=== PATIENT | female | born 1965 | race African-American/Black ===

== ENCOUNTER → 2016-10-19 | Outpatient (CLI) | payer SELFPAY ==
[2016-10-19 10:37] LABS: HEMATOCRIT 38.6 % (36.0-47.0); HEMOGLOBIN 13.1 g/dL (12.0-15.5); HGB HCT DIFFERENCE 0.7; MEAN CORPUSCULAR HEMOGLOBIN 30.6 pg (27.0-33.4); MEAN CORPUSCULAR HGB CONC 33.9 g/dL (32.0-36.0); MEAN CORPUSCULAR VOLUME 90 fl (80-97); RED BLOOD COUNT 4.28 10^6/uL (3.72-5.28); RED CELL DISTRIBUTION WIDTH 15.3 % (11.5-14.0); WHITE BLOOD COUNT 4.2 10^3/uL (4.0-10.5)
[2016-10-19 10:55] LABS: ALANINE AMINOTRANSFERASE 31 U/L (9-52); ALKALINE PHOSPHATASE 57 U/L (38-126); ANION GAP 10 (5-19); ASPARTATE AMINO TRANSFERASE 25 U/L (14-36); BILIRUBIN,TOTAL 0.6 mg/dL (0.2-1.3); BLOOD UREA NITROGEN 12 mg/dL (7-20); CALCIUM 10.5 mg/dL (8.4-10.2); CARBON DIOXIDE 29 mmol/L (22-30); CHLORIDE 100 mmol/L (98-107); CREATININE RESULT 0.57 mg/dL (0.52-1.25); GLUCOSE 105 mg/dL (75-110); POTASSIUM 4.6 mmol/L (3.6-5.0); SODIUM 139.1 mmol/L (137-145); TOTAL PROTEIN 7.6 g/dL (6.3-8.2)
== END ==
LOC: LAB 10:23
PROVIDERS: ATTEND Physician Assistant Medical
DX: I47.1 Supraventricular tachycardia (principal)
CPT/HCPCS: 36415; 80053; 84443; 85027

== ENCOUNTER → 2016-11-20 | Outpatient (CLI) | payer OTHER | LOC: OD 10:40 | PROVIDERS: ATTEND Physician Assistant | DX: R94.6 Abnormal results of thyroid function studies (principal) | CPT/HCPCS: 36415; 84436; 84443; 86376 ==

== ENCOUNTER → 2016-11-30 | Outpatient (CLI) | payer OTHER | LOC: WI 10:31 | PROVIDERS: ATTEND Physician Assistant | DX: R94.6 Abnormal results of thyroid function studies (principal) | CPT/HCPCS: 76536 ==

== ENCOUNTER → 2016-12-14 | Outpatient (CLI) | payer OTHER | LOC: WI 12:36 | PROVIDERS: ATTEND Physician Assistant | DX: Z12.31 Encounter for screening mammogram for malignant neoplasm of breast (principal) | CPT/HCPCS: 77067; G0202 ==

== ENCOUNTER → 2016-12-21 | Outpatient (CLI) | payer OTHER | LOC: RAD 08:52 | PROVIDERS: ATTEND Physician Assistant | DX: R94.6 Abnormal results of thyroid function studies (principal); E04.1 Nontoxic single thyroid nodule | CPT/HCPCS: 78014; A9516 ==

== ENCOUNTER → 2016-12-27 | Outpatient (CLI) | payer OTHER ==
--- NOTE | 2016-12-28 09:40 | XCELERA REPORT ---
[address] [address] Transthoracic Echocardiogram Report Name: BRYANNA MENJIVAR Age: 51 yrs Gender: Female : 1965 Patient Status: Outpatient Patient Location: Study Date: 12/27/2016 10:56 AM Height: 62 in Weight: 106 lb BSA: 1.5 m2 Procedure: A complete two-dimensional transthoracic echocardiogram was performed (2D, M-mode, spectral and color flow Doppler). The study was technically adequate with some images being suboptimal in quality. Reason For Study: CHEST PAIN Ordering Physician: BERTA ALBERT Performed By: Jael Gonzales Interpretation Summary The left ventricular ejection fraction is normal. There is normal left ventricular wall thickness. Doppler measurements suggest normal left ventricular diastolic function The left ventricle is grossly normal size. Wall motion cannot be accurately commented on, but no definite regional wall motion abnormalities noted. Borderline right ventricular enlargement. The right ventricular systolic function is normal. The right atrium is mildly dilated. The left atrial size is normal. There is a trace amount of mitral regurgitation There is no mitral valve stenosis. There is no aortic valve stenosis No aortic regurgitation is present. There is a moderate amount of tricuspid regurgitation There is mild to moderate pulmonary hypertension by echo Right ventricular systolic pressure is estimated to be elevated at 40- 50mmHg. The aortic root is not well visualized. The inferior vena cava appeared normal and decreased > 50% with respiration (RAP 5-10 mmHg) There is no pericardial effusion. MMode/2D Measurements \T\ Calculations RVDd: 2.0 cm LVIDd: 4.6 cm FS: 42.7 % Ao root diam: 2.9 cm IVSd: 0.83 cm LVIDs: 2.6 cm EDV(Teich): 95.1 ml LVPWd: 0.93 cmESV(Teich): 24.8 ml Ao root area: 6.7 cm2 EF(Teich): 73.9 % LA dimension: 2.6 cm LVOT diam: 2.3 cm LVOT area: 4.2 cm2 Doppler Measurements \T\ Calculations MV E max jing: MV P1/2t max jing: Ao V2 max: LV V1 max P.0 cm/sec 62.0 cm/sec 103.2 cm/sec 2.4 mmHg MV A max jing: MV P1/2t: 58.2 msec Ao max PG: LV V1 max: 44.7 cm/sec MVA(P1/2t): 3.8 cm2 4.3 mmHg 77.1 cm/sec MV E/A: 1.4 MV dec slope: FIDE(V,D): 3.1 cm2 312.0 cm/sec2 PA V2 max: TR max jing: 60.2 cm/sec 314.9 cm/sec PA max PG: TR max P.7 mmHg 1.4 mmHg Left Ventricle The left ventricle is grossly normal size. There is normal left ventricular wall thickness. The left ventricular ejection fraction is normal. Doppler measurements suggest normal left ventricular diastolic function. Wall motion cannot be accurately commented on, but no definite regional wall motion abnormalities noted. Right Ventricle Borderline right ventricular enlargement. There is normal right ventricular wall thickness. The right ventricular systolic function is normal. Atria The right atrium is mildly dilated. The left atrial size is normal. Interarterial septum not well visualized and not well dopplered. Cannot comment on ASD/PFO presence. Mitral Valve The mitral valve is grossly normal. There is no mitral valve stenosis. There is a trace amount of mitral regurgitation. Aortic Valve The aortic valve is grossly normal. There is no aortic valve stenosis. No aortic regurgitation is present. Tricuspid Valve The tricuspid valve is not well visualized, but is grossly normal. There is no tricuspid stenosis. There is a moderate amount of tricuspid regurgitation. There is mild to moderate pulmonary hypertension by echo. Right ventricular systolic pressure is estimated to be elevated at 40- 50mmHg. Great Vessels The aortic root is not well visualized. The inferior vena cava appeared normal and decreased > 50% with respiration (RAP 5-10 mmHg). Effusions There is no pericardial effusion. : BERTA ALBERT > Berta Albert
== END ==
LOC: SP 10:38
PROVIDERS: ATTEND Internal Medicine Cardiovascular Disease
DX: R00.2 Palpitations (principal); R42 Dizziness and giddiness; R55 Syncope and collapse; R07.9 Chest pain, unspecified
CPT/HCPCS: 93306

== ENCOUNTER 2017-05-21 16:27 | Emergency (ER) | payer OTHER ==
[2017-05-21 17:00] VITALS: BP 151/92
[2017-05-21] MEDS ORDERED: ASPIRIN 81 MG TABLET, CHEWABLE PO ONE (17:16)
--- NOTE | 2017-05-21 17:21 | ER Document Report ---
ED Medical Screen (RME) - General Chief Complaint: Chest Pain Stated Complaint: CHEST PAIN, HEADACHE Time Seen by Provider: 05/21/17 17:16 Mode of Arrival: Ambulatory Information source: Patient Notes: 52-year-old female who presents with complaints of midsternal left-sided chest pressure associated with headache. Patient states chest pain started today. Patient notes she has had similar episodes in the past had a stress test by Dr. Yip recently I have greeted and performed a rapid initial assessment of this patient. A comprehensive ED assessment and evaluation of the patient, analysis of test results and completion of the medical decision making process will be conducted by additional ED providers. PHYSICAL EXAMINATION: GENERAL: Well-appearing, well-nourished and in no acute distress. HEAD: Atraumatic, normocephalic. EYES: Pupils equal round extraocular movements intact, conjunctiva are normal. ENT: Nares patent NECK: Normal range of motion LUNGS: No respiratory distress Musculoskeletal: Normal range of motion NEUROLOGICAL: Normal speech, normal gait. PSYCH: Normal mood, normal affect. SKIN: Warm, Dry, normal turgor, no rashes or lesions noted. TRAVEL OUTSIDE OF THE [place] IN LAST 30 DAYS: No - Related Data Allergies/Adverse Reactions: iodine Allergy (Verified 05/21/17 17:07) Shellfish * [Shellfish] Allergy (Verified 05/21/17 17:07) Home Medications: Current Home Medications Metoprolol Tartrate 25 mg PO DAILY 05/21/17 [History] Past Medical History - Social History Chew tobacco use (# tins/day): No Frequency of alcohol use: Occasional Drug Abuse: None Renal/ Medical History: Denies: Hx Peritoneal Dialysis Past Surgical History: Reports: Hx Section - x3, Hx Hysterectomy - Immunizations Hx Diphtheria, Pertussis, Tetanus Vaccination: Yes Physical Exam - Vital signs Vitals: Temp Pulse Resp BP Pulse Ox 98.4 F 82 20 151/92 H 96 05/21/17 16:59 05/21/17 16:59 05/21/17 16:59 05/21/17 16:59 05/21/17 16:59 Course - Vital Signs Vital signs: Temp Pulse Resp BP Pulse Ox 98.4 F 82 20 151/92 H 96 05/21/17 16:59 05/21/17 16:59 05/21/17 16:59 05/21/17 16:59 05/21/17 16:59
--- NOTE | 2017-05-21 17:50 | EKG REPORT ---
SEVERITY:- NORMAL ECG - SINUS RHYTHM : Confirmed by: Berta Armstrong 21-May-2017 17:49:50
[2017-05-21 17:58] LABS: ABSOLUTE LYMPHOCYTES (AUTO) 0.7 10^3/uL (0.5-4.7); ABSOLUTE MONOCYTES (AUTO) 0.4 10^3/uL (0.1-1.4); ABSOLUTE NEUT (AUTO) 2.7 10^3/uL (1.7-8.2); BASOPHILS % (AUTO) 0.6 % (0-2); HEMATOCRIT 36.3 % (36.0-47.0); HEMOGLOBIN 12.3 g/dL (12.0-15.5); HGB HCT DIFFERENCE 0.6; LYMPHOCYTES % (AUTO) 18.1 % (13-45); MEAN CORPUSCULAR HEMOGLOBIN 30.8 pg (27.0-33.4); MEAN CORPUSCULAR HGB CONC 33.9 g/dL (32.0-36.0); MEAN CORPUSCULAR VOLUME 91 fl (80-97); MONOCYTES % (AUTO) 9.5 % (3-13); RED BLOOD COUNT 3.99 10^6/uL (3.72-5.28); RED CELL DISTRIBUTION WIDTH 14.8 % (11.5-14.0); SEGMENTED NEUTROPHILS % (AUTO) 71.8 % (42-78); WHITE BLOOD COUNT 3.8 10^3/uL (4.0-10.5)
[2017-05-21 18:08] LABS: ALANINE AMINOTRANSFERASE 39 U/L (9-52); ALKALINE PHOSPHATASE 73 U/L (38-126); ANION GAP 15 (5-19); ASPARTATE AMINO TRANSFERASE 63 U/L (14-36); BILIRUBIN,DIRECT 0.4 mg/dL (0.0-0.4); BILIRUBIN,TOTAL 0.8 mg/dL (0.2-1.3); BLOOD UREA NITROGEN 10 mg/dL (7-20); CALCIUM 9.5 mg/dL (8.4-10.2); CARBON DIOXIDE 27 mmol/L (22-30); CHLORIDE 95 mmol/L (98-107); CREATINE KINASE 82 U/L (30-135); CREATININE RESULT 0.46 mg/dL (0.52-1.25); GLUCOSE 74 mg/dL (75-110); POTASSIUM 4.3 mmol/L (3.6-5.0); SODIUM 136.8 mmol/L (137-145)
--- NOTE | 2017-05-21 18:19 | RADIOLOGY REPORT (SQ) ---
EXAM DESCRIPTION: CHEST SINGLE VIEW COMPLETED DATE/TIME: 05/21/2017 5:58 pm REASON FOR STUDY: chest pain COMPARISON: None. EXAM PARAMETERS: NUMBER OF VIEWS: One view. TECHNIQUE: Single frontal radiographic view of the chest acquired. RADIATION DOSE: NA LIMITATIONS: None. FINDINGS: LUNGS AND PLEURA: No opacities, masses or pneumothorax. No pleural effusion. MEDIASTINUM AND HILAR STRUCTURES: No masses. Contour normal. HEART AND VASCULAR STRUCTURES: Heart normal in size. Normal vasculature. BONES: No acute findings. HARDWARE: None in the chest. OTHER: No other significant finding. IMPRESSION: NO ACUTE RADIOGRAPHIC FINDING IN THE CHEST. TECHNICAL DOCUMENTATION: JOB ID: [id number]
[2017-05-21 18:20] LABS: CREATINE KINASE MB 0.72 ng/mL (<4.55)
[2017-05-21 18:21] LABS: TROPONIN I < 0.012 ng/mL
[2017-05-21] MEDS ORDERED: KETOROLAC TROMETHAMINE INJ/PF 30 MG/1 ML SDV IV ONE (19:05)
[2017-05-21] MEDS ORDERED: DIPHENHYDRAMINE HCL 50 MG/ML VIAL IV ONE (19:05)
[2017-05-21] MEDS ORDERED: PROCHLORPERAZINE EDISYLATE INJ 10 MG/2 ML VIAL IV ONE (19:05)
--- NOTE | 2017-05-21 19:20 | ER Document Report ---
ED General - General Chief Complaint: Chest Pain Stated Complaint: CHEST PAIN, HEADACHE Time Seen by Provider: 05/21/17 17:16 Mode of Arrival: Ambulatory Notes: Patient is a 52-year-old female with past medical history of hypertension, tobacco abuse who presents with an episode of left-sided chest pain that has now resolved. States that it did start around noon today and lasted for approximately 30-45 minutes. Scabbed it as a stabbing, diffuse chest wall pain that did not radiate any location. Notes that she did have an associated episode of vomiting with this chest pain. 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 She has no prior cardiac history. She denies any chest pain at time of my assessment. Notes that after the episode of vomiting she had a gradual onset of a bitemporal, constant, throbbing headache that was moderate to severe nature. It is worsened by movement and light. She denies any associated weakness or numbness. She has had headaches in the past. She has not seen a primary care doctor regarding today's concerns. TRAVEL OUTSIDE OF THE [place] IN LAST 30 DAYS: No - Related Data Allergies/Adverse Reactions: iodine Allergy (Verified 05/21/17 17:07) Shellfish * [Shellfish] Allergy (Verified 05/21/17 17:07) Home Medications: Current Home Medications Metoprolol Tartrate 25 mg PO DAILY 05/21/17 [History] Past Medical History - General Information source: Patient - Social History Smoking Status: Current Every Day Smoker Chew tobacco use (# tins/day): No Frequency of alcohol use: Occasional Drug Abuse: None Lives with: Family Family History: Reviewed & Not Pertinent, Other Renal/ Medical History: Denies: Hx Peritoneal Dialysis Past Surgical History: Reports: Hx Section - x3, Hx Hysterectomy - Immunizations Hx Diphtheria, Pertussis, Tetanus Vaccination: Yes Review of Systems - Review of Systems Notes: Constitutional: Negative for fever. HENT: Negative for sore throat. Eyes: Negative for visual changes. Cardiovascular: Positive for chest pain. Respiratory: Negative for shortness of breath. Gastrointestinal: Negative for abdominal pain, vomiting or diarrhea. Genitourinary: Negative for dysuria. Musculoskeletal: Negative for back pain. Skin: Negative for rash. Neurological: Positive for headaches, negative for weakness or numbness. 10 point ROS negative except as marked above and in HPI. Physical Exam - Vital signs Vitals: Temp Pulse Resp BP Pulse Ox 98.4 F 82 20 151/92 H 96 05/21/17 16:59 05/21/17 16:59 05/21/17 16:59 05/21/17 16:59 05/21/17 16:59 Interpretation: Hypertensive Notes: PHYSICAL EXAMINATION: GENERAL: Well-appearing, well-nourished and in no acute distress. HEAD: Atraumatic, normocephalic. EYES: Pupils equal round and reactive to light, extraocular movements intact, sclera anicteric, conjunctiva are normal. ENT: nares patent, oropharynx clear without exudates. Moist mucous membranes. NECK: Normal range of motion, supple without lymphadenopathy LUNGS: Breath sounds clear to auscultation bilaterally and equal. No wheezes rales or rhonchi. HEART: Regular rate and rhythm without murmurs ABDOMEN: Soft, nontender, normoactive bowel sounds. No guarding, no rebound. No masses appreciated. EXTREMITIES: Normal range of motion, no pitting or edema. No cyanosis. NEUROLOGICAL: No focal neurological deficits. Moves all extremities spontaneously and on command. PSYCH: Normal mood, normal affect. SKIN: Warm, Dry, normal turgor, no rashes or lesions noted. Course - Re-evaluation Re-evalutation: 05/21/17 19:17 Presentation of chest pain in an otherwise well appearing patient. Low clinical suspicion for ACS given clinical history, exam, EKG without ST elevations or depressions, and negative initial troponin. HEART score less than or equal to 3. PE also seems unlikely given clinical history, absence of tachycardia or dyspnea. Well's score is 0. CXR without evidence of pneumothorax or pneumonia. No widened mediastinum. Aortic dissection also seems unlikely given history, symmetric pulses, CXR, and vitals. Will obtain a second troponin to further exclude a ischemic etiology of today's chest pain. Patient does also complain of an associated headache that started after she had a single episode of vomiting. Headache was not maximal in onset, patient has no focal neurologic deficits, no nuchal rigidity, vital signs within normal limits, no papilledema, and patient is overall well in appearance. Based on clinical history and examination I do not suspect an acute subarachnoid hemorrhage, dural venous sinus thrombosis, acute meningitis, or intercranial mass. Given my low clinical suspicion for any acute life-threatening etiology, I do not feel advanced neuro imaging or laboratory testing is indicated at this time. Will proceed with headache cocktail and reassess. HEART Score: History:1 EC Age:1 Risk Factors:1 Troponin:0 Total: 3 Final assessment: Repeat troponin is negative. Chest pain in a patient without evidence of cardiac or other serious etiology on workup today. I discussed with patient that, based on their age, risk factors and emergency department testing today, the likelihood that their symptoms are related to a heart attack is very low (estimated risk of heart attack or over the next 30 days of less than 1%). The patient demonstrates decision making capacity and has verbalized an understanding of these risks to me. Based on this, the patient has chosen to follow-up as an outpatient. Usual chest pain return precautions reviewed. The patient states understanding and agreement with this plan. - Vital Signs Vital signs: Temp Pulse Resp BP Pulse Ox 98.1 F 82 20 151/92 H 96 05/21/17 21:25 05/21/17 16:59 05/21/17 16:59 05/21/17 16:59 05/21/17 16:59 - Laboratory Result Diagrams: 05/21/17 17:42 05/21/17 17:42 Laboratory results interpreted by me: 05/21/17 05/21/17 17:42 17:42 WBC 3.8 L RDW 14.8 H Plt Count 131 L Sodium 136.8 L Chloride 95 L Creatinine 0.46 L Glucose 74 L AST 63 H - Diagnostic Test Radiology reviewed: Image reviewed, Reports reviewed Radiology results interpreted by me: 05/21/17 19:20 Chest x-ray: No acute infiltrate or pneumothorax - EKG Interpretation by Me Additional EKG results interpreted by me: 05/21/17 19:20 Normal sinus rhythm. Rate 78. No ST elevations or depressions. QTC is 479. Discharge - Discharge Clinical Impression: Chest pain Qualifiers: Chest pain type: unspecified Qualified Code(s): R07.9 - Chest pain, unspecified Headache Qualifiers: Headache type: unspecified Headache chronicity pattern: acute headache Intractability: not intractable Qualified Code(s): R51 - Headache Condition: Good Disposition: HOME, SELF-CARE Additional Instructions: You were seen today for chest pain. The exact cause of your pain is unclear. However, based on your cardiac enzyme testing, chest x-ray, and EKG it does not appear that it is from an immediately life-threatening cause at this time. Although your testing here is normal is critical that you follow-up with your primary care physician for continued evaluation of this chest pain and possible stress testing. I recommended you see your physician within the next 24-48 hours to be evaluated for consideration of a stress test. Please return to emergency department immediately if you have worsening of your chest pain, shortness of breath, vomiting, become unable to exert yourself due to pain or difficulty breathing, you pass out, or have any pain that radiates into your arms, jaw, or back. Please also return if you have any additional symptoms that are concerning to you. Referrals: JERMAIN HIDALGO MD [Primary Care Provider] - Follow up as needed
== END 2017-05-21 21:35 | disposition home or self-care (01) ==
LOC: ER 16:27
DX: R07.9 Chest pain, unspecified (principal); R51 Headache; F17.200 Nicotine dependence, unspecified, uncomplicated
CPT/HCPCS: 93005; 99285; 96374; 96375; 36415; 82553; 82550; 85025; 80053; 84484; 71010; 93010; J1200; J1885; J0780

== ENCOUNTER 2017-06-24 23:12 | Emergency (ER) | payer OTHER ==
[2017-06-24] MEDS ORDERED: ASPIRIN 81 MG TABLET, CHEWABLE PO ONE (23:49)
[2017-06-24] MEDS ORDERED: ASPIRIN 81 MG TABLET, CHEWABLE ONE (23:54)
[2017-06-25] MEDS ORDERED: IPRATROPIUM/ALBUTEROL 0.5-2.5 MG/3 ML AMPUL NEB ONE (00:46)
--- NOTE | 2017-06-25 01:00 | ER Document Report ---
ED General - General Chief Complaint: Chest Pain > 30 Stated Complaint: CHEST PAIN Time Seen by Provider: 06/25/17 00:32 Notes: Patient is a 52-year-old female who comes emergency department for chief complaint of an episode where she coughed and coughed up some blood mixed with mucus, she states she had pain in her left side of her chest and her left shoulder while she was having the coughing episode. She denies any current symptoms other than occasional cough. She denies any abdominal pain, vomiting, night sweats, unintentional weight loss, or recent travel. She smokes. Past medical history of hypertension. Other past medical history is hysterectomy, denies any other history. Patient smells of alcohol, she admits she has been drinking tonight, she denies knowing how much she drank. Significant other at bedside. TRAVEL OUTSIDE OF THE [place] IN LAST 30 DAYS: No - Related Data Allergies/Adverse Reactions: iodine Allergy (Verified 05/21/17 17:07) Shellfish * [Shellfish] Allergy (Verified 05/21/17 17:07) Past Medical History - General Information source: Patient - Social History Smoking Status: Current Every Day Smoker Smoking Education Provided: Yes - <3 min Frequency of alcohol use: Occasional Drug Abuse: None Lives with: Family Family History: Reviewed & Not Pertinent, Other Patient has suicidal ideation: No Patient has homicidal ideation: No Renal/ Medical History: Denies: Hx Peritoneal Dialysis Past Surgical History: Reports: Hx Section - x3, Hx Hysterectomy - Immunizations Hx Diphtheria, Pertussis, Tetanus Vaccination: Yes Review of Systems - Review of Systems Constitutional: No symptoms reported EENT: No symptoms reported Cardiovascular: No symptoms reported Respiratory: See HPI Gastrointestinal: No symptoms reported Genitourinary: No symptoms reported Female Genitourinary: No symptoms reported Musculoskeletal: No symptoms reported Skin: No symptoms reported Hematologic/Lymphatic: No symptoms reported Neurological/Psychological: No symptoms reported Physical Exam - Vital signs Vitals: Temp Pulse Resp BP Pulse Ox 97.7 F 83 20 105/72 100 06/24/17 23:25 06/24/17 23:25 06/24/17 23:25 06/24/17 23:25 06/24/17 23:25 Interpretation: Normal - General General appearance: Appears well, Alert In distress: None - Patient smells of alcohol but does not appear to be acting intoxicated - HEENT Head: Normocephalic, Atraumatic Eyes: Normal Conjunctiva: Normal Extraocular movements intact: Yes Eyelashes: Normal Pupils: PERRL Nasal: Normal Mouth/Lips: Normal Mucous membranes: Normal Pharynx: Normal Neck: Normal - Respiratory Respiratory status: No respiratory distress. No: Respiratory distress, Labored , Tachypnea Chest status: Nontender Breath sounds: Decreased air movement, Nonproductive cough, Wheezing Chest palpation: Normal - Cardiovascular Rhythm: Regular. No: Tachycardia Heart sounds: Normal auscultation, S1 appreciated, S2 appreciated Murmur: No - Abdominal Inspection: Normal Distension: No distension Bowel sounds: Normal Tenderness: Nontender Organomegaly: No organomegaly - Back Back: Normal, Nontender - Extremities General upper extremity: Normal inspection, Nontender, Normal color, Normal ROM , Normal temperature General lower extremity: Normal inspection, Nontender, Normal color, Normal ROM , Normal temperature, Normal weight bearing. No: Kyra's sign - Neurological Neuro grossly intact: Yes Cognition: Normal Orientation: AAOx4 [place] Coma Scale Eye Opening: Spontaneous [place] Coma Scale Verbal: Oriented [place] Coma Scale Motor: Obeys Commands Mariel[place] Coma Scale Total: 15 Speech: Normal Motor strength normal: LUE, RUE, LLE, RLE Sensory: Normal - Psychological Associated symptoms: Normal affect, Normal mood - Skin Skin Temperature: Warm Skin Moisture: Dry Skin Color: Normal Course - Re-evaluation Re-evalutation: Chest x-ray with no significant change when compared to prior. EKG with no T- wave inversions or ST segment changes in consecutive leads, shows sinus rhythm, no ischemic or acute abnormality. I did discuss these with Dr. Negron. CBC shows mild leukopenia, nonspecific. Chemistry shows AST greater than ALT consistent with patient's alcohol use. On examination patient with coughing and wheezing. I suspect hemoptysis from bronchial source, likely secondary to tobacco abuse. No fever, no pneumonia, no evidence of infection. Wheezing and coughing resolved after DuoNeb treatment. Cardiac enzymes negative but patient not specifically complaining of any symptoms suggesting ACS. Patient requesting to go home. Placing on prednisone, will give Pepcid to avoid gastrointestinal upset, discussed smoking cessation and patient states she is Bigg decided she is going to quit. Discussed return precautions and outpatient follow-up, patient states understanding and agreement. - Vital Signs Vital signs: Temp Pulse Resp BP Pulse Ox 98.0 F 89 21 H 107/86 H 98 06/25/17 02:56 06/25/17 02:56 06/25/17 02:56 06/25/17 02:56 06/25/17 02:56 - Laboratory Result Diagrams: 06/25/17 00:35 06/25/17 00:35 Laboratory results interpreted by me: 06/25/17 06/25/17 00:35 00:35 WBC 3.5 L RBC 3.69 L Hgb 11.2 L Hct 34.8 L RDW 16.0 H Plt Count 123 L Sodium 146.1 H AST 171 H ALT 70 H Discharge - Discharge Clinical Impression: Wheezing, Cough, Cough with hemoptysis, Tobacco abuse Condition: Stable Disposition: HOME, SELF-CARE Additional Instructions: Your symptoms and imaging are suggestive of COPD developing. Because of your recent symptoms of wheezing and cough take the prednisone as prescribed to completion. Take the Pepcid with this to avoid stomach upset. Stop smoking. Follow-up with your primary care provider. Your liver enzymes are somewhat elevated, this is probably because of the alcohol this weekend, follow-up with primary care for monitoring. Return to the emergency department for any concerning or worsening symptoms including difficulty breathing, fever, chest pain, or any other concerning symptoms. Prescriptions: Famotidine [Pepcid 20 mg Tablet] 20 mg PO DAILY #12 tablet Prednisone [Deltasone 10 mg Tablet] 10 mg PO ASDIR PRN #21 tablet PRN Reason: Referrals: JERMAIN HIDALGO MD [Primary Care Provider] - Follow up as needed
[2017-06-25 01:10] LABS: CREATINE KINASE MB 1.03 ng/mL (<4.55); TROPONIN I < 0.012 ng/mL
[2017-06-25 01:12] LABS: ABSOLUTE LYMPHOCYTES (AUTO) 1.4 10^3/uL (0.5-4.7); ABSOLUTE MONOCYTES (AUTO) 0.3 10^3/uL (0.1-1.4); ABSOLUTE NEUT (AUTO) 1.8 10^3/uL (1.7-8.2); EOSINOPHILS % (AUTO) 0.8 % (0-6); HEMATOCRIT 34.8 % (36.0-47.0); HEMOGLOBIN 11.2 g/dL (12.0-15.5); HGB HCT DIFFERENCE -1.2; LYMPHOCYTES % (AUTO) 38.6 % (13-45); MEAN CORPUSCULAR HEMOGLOBIN 30.2 pg (27.0-33.4); MEAN CORPUSCULAR VOLUME 94 fl (80-97); MONOCYTES % (AUTO) 8.5 % (3-13); RED BLOOD COUNT 3.69 10^6/uL (3.72-5.28); SEGMENTED NEUTROPHILS % (AUTO) 51.1 % (42-78); WHITE BLOOD COUNT 3.5 10^3/uL (4.0-10.5)
--- NOTE | 2017-06-25 01:16 | RADIOLOGY REPORT (SQ) ---
EXAM DESCRIPTION: CHEST PA/LAT COMPLETED DATE/TIME: 06/25/2017 12:32 am REASON FOR STUDY: CP COMPARISON: 8.7.17 EXAM PARAMETERS: NUMBER OF VIEWS: two views TECHNIQUE: Digital Frontal and Lateral radiographic views of the chest acquired. RADIATION DOSE: NA LIMITATIONS: none FINDINGS: LUNGS AND PLEURA: No opacities, masses or pneumothorax. No pleural effusion. Hyperinflati on. MEDIASTINUM AND HILAR STRUCTURES: No masses or contour abnormalities. HEART AND VASCULAR STRUCTURES: Mild enlargement of the cardiac silhouette. BONES: No acute findings. HARDWARE: None in the chest. OTHER: No other significant finding. IMPRESSION: Mild enlargement of the cardiac silhouette. Otherwise, unremarkable. TECHNICAL DOCUMENTATION: JOB ID: [id number] [employer]- All Rights Reserved
[2017-06-25 01:20] LABS: ALANINE AMINOTRANSFERASE 70 U/L (9-52); ALBUMIN 4.4 g/dL (3.5-5.0); ALKALINE PHOSPHATASE 87 U/L (38-126); ANION GAP 12 (5-19); ASPARTATE AMINO TRANSFERASE 171 U/L (14-36); BILIRUBIN,DIRECT 0.2 mg/dL (0.0-0.4); BILIRUBIN,TOTAL 0.2 mg/dL (0.2-1.3); BLOOD UREA NITROGEN 11 mg/dL (7-20); CALCIUM 9.2 mg/dL (8.4-10.2); CARBON DIOXIDE 29 mmol/L (22-30); CHLORIDE 105 mmol/L (98-107); CREATININE RESULT 0.57 mg/dL (0.52-1.25); GLUCOSE 102 mg/dL (75-110); POTASSIUM 3.9 mmol/L (3.6-5.0); SODIUM 146.1 mmol/L (137-145)
[2017-06-25] MEDS ORDERED: FAMOTIDINE 20 MG TABLET PO ONE (01:44)
[2017-06-25 03:04] VITALS: BP 107/86
--- NOTE | 2017-06-25 06:58 | EKG REPORT ---
SEVERITY:- BORDERLINE ECG - SINUS RHYTHM BORDERLINE T ABNORMALITIES, ANT-LAT LEADS BORDERLINE PROLONGED QT INTERVAL : Confirmed by: Berta Armstrong 25-Jun-2017 06:57:53
== END 2017-06-25 02:58 | disposition home or self-care (01) ==
LOC: ER 23:12
DX: R06.2 Wheezing (principal); R04.2 Hemoptysis; R07.9 Chest pain, unspecified; F17.210 Nicotine dependence, cigarettes, uncomplicated; Z91.013 Allergy to seafood; Z90.710 Acquired absence of both cervix and uterus
CPT/HCPCS: 93005; 94640; 99285; 36415; 82553; 82550; 85025; 80053; 84484; 71020; 93010; J7620

== ENCOUNTER → 2017-06-28 | Outpatient (CLI) | payer OTHER ==
--- NOTE | 2017-06-28 14:15 | RADIOLOGY REPORT (SQ) ---
EXAM DESCRIPTION: CHEST PA/LAT COMPLETED DATE/TIME: 06/28/2017 1:48 pm REASON FOR STUDY: SOB COMPARISON: 10/12/2016, 05/21/2017, 06/25/2017 EXAM PARAMETERS: NUMBER OF VIEWS: two views TECHNIQUE: Digital Frontal and Lateral radiographic views of the chest acquired. RADIATION DOSE: NA LIMITATIONS: none FINDINGS: LUNGS AND PLEURA: No opacities, masses or pneumothorax. No pleural effusion. MEDIASTINUM AND HILAR STRUCTURES: No masses or contour abnormalities. HEART AND VASCULAR STRUCTURES: Mild cardiomegaly BONES: No acute findings. HARDWARE: None in the chest. OTHER: No other significant finding. IMPRESSION: Mild cardiomegaly No acute infiltrates. No pleural effusion or pneumothorax. TECHNICAL DOCUMENTATION: JOB ID: [id number] [email or web address]- All Rights Reserved
--- NOTE | 2017-06-28 14:39 | RADIOLOGY REPORT (SQ) ---
EXAM DESCRIPTION: NM LUNG VENT/PERF SCAN COMPLETED DATE/TIME: 06/28/2017 2:17 pm REASON FOR STUDY: SOB R05 COUGH R06.02 SHORTNESS OF BREATH COMPARISON: Chest films 10/12/2016, 05/21/2017, 06/25/2017, 06/28/2017 RADIONUCLIDE AND DOSE: 5.3 millicuries TC-99m MAA Intravenous 27.6 millicuries TC-99m DTPA Inhaled aerosol TECHNIQUE: Eight views of the lungs acquired post ventilation of DTPA aerosol. Eight matching views of the lungs acquired following injection of MAA. LIMITATIONS: None. FINDINGS: VENTILATION: Symmetric and homogeneous distribution of DTPA aerosol during ventilatory pha se. No significant areas of photopenia. PERFUSION: Perfusion images with normal homogenous activity and no wedge-shaped or segmental defects. No ventilation-perfusion mismatches. OTHER: No other significant finding. IMPRESSION: NORMAL VENTILATION-PERFUSION LUNG SCAN. NEGATIVE FOR PULMONARY EMBOLI. TECHNICAL DOCUMENTATION: JOB ID: [id number] [email or web address]- All Rights Reserved
== END ==
LOC: RAD 12:26
PROVIDERS: ATTEND Physician Assistant
DX: R05 Cough (principal); R06.02 Shortness of breath
CPT/HCPCS: 71020; 78582; A9540; A9567; Q9969

== ENCOUNTER → 2017-07-02 | Outpatient (CLI) | payer OTHER ==
[2017-07-02 12:35] LABS: ABSOLUTE MONOCYTES (AUTO) 0.6 10^3/uL (0.1-1.4); ABSOLUTE NEUT (AUTO) 3.5 10^3/uL (1.7-8.2); BASOPHILS % (AUTO) 0.3 % (0-2); EOSINOPHILS % (AUTO) 0.1 % (0-6); HEMATOCRIT 34.9 % (36.0-47.0); HEMOGLOBIN 11.6 g/dL (12.0-15.5); HGB HCT DIFFERENCE -0.1; LYMPHOCYTES % (AUTO) 19.8 % (13-45); MEAN CORPUSCULAR HEMOGLOBIN 30.7 pg (27.0-33.4); MEAN CORPUSCULAR HGB CONC 33.3 g/dL (32.0-36.0); MEAN CORPUSCULAR VOLUME 92 fl (80-97); MONOCYTES % (AUTO) 10.8 % (3-13); RED BLOOD COUNT 3.79 10^6/uL (3.72-5.28); RED CELL DISTRIBUTION WIDTH 15.8 % (11.5-14.0); WHITE BLOOD COUNT 5.1 10^3/uL (4.0-10.5)
== END ==
LOC: OD 11:30
PROVIDERS: ATTEND Physician Assistant
DX: R05 Cough (principal)
CPT/HCPCS: 36415; 85025

== ENCOUNTER 2018-12-26 15:50 | Emergency (ER) | payer SELFPAY ==
--- NOTE | 2018-12-26 18:19 | ER Document Report ---
ED Medical Screen (RME) - General Chief Complaint: Chest Pain > 30 Stated Complaint: NUMBNESS Time Seen by Provider: 12/26/18 18:00 TRAVEL OUTSIDE OF THE [place] IN LAST 30 DAYS: No - HPI Notes: 12/26/18 18:02 53 yr old female presents with complaints of chest pain pressure with "twinges" and left sided numbness and tingling that has been intermittent with the chest pain x 3 days ago, duration is fleeting. no n/v/d, no abdominal pain. Patient states she has never had a cardiac issue in the past, has never had a heart attack. Reports she does have a history of a murmur, has been evaluated by Dr. Armstrong in the past, but has not been seen by him lately. hx of htn, does take blood pressure medication but she is not sure which one it is. States she has not been recently changed on her blood pressure medication. Patient does smoke a cigarette "every other day for the last 30 years". Denies any rashes. Vaccinations are up-to-date. Denies fevers, chills, palpitations, shortness of breath, dyspnea, nausea, vomiting, diarrhea, abdominal pain, hematuria,blurred vision, double vision, loss of vision, speech changes, LH, dizziness, syncope, headaches, wheezing, ST, URI, neck pain, weakness, bowel or bladder dysfunction, saddle anesthesia, muscle paralysis, weakness in bilateral upper or lower extremities equally or rash. I have greeted and performed a rapid initial assessment of this patient. A comprehensive ED assessment and evaluation of the patient, analysis of test results and completion of medical decision making process will be conducted by an additional ED providers. - Related Data Allergies/Adverse Reactions: iodine Allergy (Verified 12/26/18 16:04) Shellfish * [Shellfish] Allergy (Verified 12/26/18 16:04) Past Medical History - Social History Frequency of alcohol use: Social Drug Abuse: None - Past Medical History Cardiac Medical History: Reports: Hx Hypertension Renal/ Medical History: Denies: Hx Peritoneal Dialysis Past Surgical History: Reports: Hx Section - x3, Hx Hysterectomy - Immunizations Hx Diphtheria, Pertussis, Tetanus Vaccination: Yes Physical Exam - Vital signs Vitals: Temp Pulse Resp BP Pulse Ox 97.9 F 87 16 106/62 98 12/26/18 16:26 12/26/18 16:26 12/26/18 16:26 12/26/18 16:26 12/26/18 16:26 - Respiratory Respiratory status: No respiratory distress Chest status: Nontender Breath sounds: Normal Chest palpation: Normal - Cardiovascular Rhythm: Regular Heart sounds: Normal auscultation Murmur: Yes Normal capillary refill: Yes Course - Vital Signs Vital signs: Temp Pulse Resp BP Pulse Ox 97.9 F 87 16 106/62 98 12/26/18 16:26 12/26/18 16:26 12/26/18 16:26 12/26/18 16:26 12/26/18 16:26
[2018-12-26 18:23] LABS: ABSOLUTE LYMPHOCYTES (AUTO) 0.9 10^3/uL (0.5-4.7); ABSOLUTE MONOCYTES (AUTO) 0.5 10^3/uL (0.1-1.4); BASOPHILS % (AUTO) 0.7 % (0-2); EOSINOPHILS % (AUTO) 0.1 % (0-6); HEMATOCRIT 36.4 % (36.0-47.0); HEMOGLOBIN 12.1 g/dL (12.0-15.5); LYMPHOCYTES % (AUTO) 14.5 % (13-45); MEAN CORPUSCULAR HEMOGLOBIN 30.5 pg (27.0-33.4); MEAN CORPUSCULAR HGB CONC 33.2 g/dL (32.0-36.0); MEAN CORPUSCULAR VOLUME 92 fl (80-97); PLATELET COUNT 112 10^3/uL (150-450); RED BLOOD COUNT 3.95 10^6/uL (3.72-5.28); RED CELL DISTRIBUTION WIDTH 15.6 % (11.5-14.0); SEGMENTED NEUTROPHILS % (AUTO) 76.7 % (42-78); TOTAL CELLS COUNTED % (AUTO) 100 %; WHITE BLOOD COUNT 6.6 10^3/uL (4.0-10.5)
[2018-12-26 18:44] LABS: ALANINE AMINOTRANSFERASE 84 U/L (9-52); ALBUMIN 5.4 g/dL (3.5-5.0); ALKALINE PHOSPHATASE 76 U/L (38-126); ASPARTATE AMINO TRANSFERASE 183 U/L (14-36); BILIRUBIN,DIRECT 0.4 mg/dL (0.0-0.4); BILIRUBIN,TOTAL 0.8 mg/dL (0.2-1.3); BLOOD UREA NITROGEN 18 mg/dL (7-20); CALCIUM 9.8 mg/dL (8.4-10.2); CREATINE KINASE 103 U/L (30-135); GLUCOSE 75 mg/dL (75-110); POTASSIUM 4.1 mmol/L (3.6-5.0); TOTAL PROTEIN 8.1 g/dL (6.3-8.2)
--- NOTE | 2018-12-26 18:45 | EKG REPORT ---
SEVERITY:- ABNORMAL ECG - SINUS RHYTHM PROBABLE LEFT ATRIAL ABNORMALITY NONSPECIFIC T ABNORMALITIES, ANT-LAT LEADS PROLONGED QT INTERVAL : Confirmed by: Chencho Perez MD 26-Dec-2018 18:44:45
[2018-12-26 18:55] LABS: ANION GAP 22 (5-19)
[2018-12-26 18:56] LABS: CARBON DIOXIDE 21 mmol/L (22-30); CHLORIDE 90 mmol/L (98-107); SODIUM 132.5 mmol/L (137-145)
[2018-12-26 18:57] LABS: TROPONIN I < 0.012 ng/mL
--- NOTE | 2018-12-26 19:12 | RADIOLOGY REPORT (SQ) ---
EXAM DESCRIPTION: CT HEAD WITHOUT COMPLETED DATE/TIME: 12/26/2018 6:41 pm REASON FOR STUDY: cp with n/t on left side COMPARISON: 10/12/2016 TECHNIQUE: Axial images acquired through the brain without intravenous contrast. Images reviewed wi th bone, brain and subdural windows. Additional sagittal and coronal reconstructions were generated. Images stored on PACS. All CT scanners at this facility use dose modulation, iterative reconstruction, and/or weight based d osing when appropriate to reduce radiation dose to as low as reasonably achievable (ALARA). [facility]: Dose Right [facility]: CareDose [facility]: Dose Right [facility]: Teradose 4D [facility]: Theralogix RADIATION DOSE: CT Rad equipment meets quality standard of care and radiation dose reduction techniq ues were employed. CTDIvol: 53.2 mGy. DLP: 991 mGy-cm. mGy. LIMITATIONS: None. FINDINGS: VENTRICLES: Normal size and contour. CEREBRUM: No masses. No hemorrhage. No midline shift. No evidence for acute infarction. Normal gra y/white matter differentiation. No areas of low density in the white matter. CEREBELLUM: No masses. No hemorrhage. No alteration of density. No evidence for acute infarction. EXTRAAXIAL SPACES: No fluid collections. No masses. ORBITS AND GLOBE: No intra- or extraconal masses. Normal contour of globe without masses. CALVARIUM: No fracture. PARANASAL SINUSES: No fluid or mucosal thickening. SOFT TISSUES: No mass or hematoma. OTHER: No other significant finding. IMPRESSION: NORMAL BRAIN CT WITHOUT CONTRAST. EVIDENCE OF ACUTE STROKE: NO. COMMENT: Quality ID # [id number]: Final reports with documentation of one or more dose reduction techniques (e.g., Automated exposure control, adjustment of the mA and/or kV according to patient size, use of iterative reconstruction technique) TECHNICAL DOCUMENTATION: JOB ID: [id number] [employer]- All Rights Reserved Reading location - IP/workstation name: [email or web address]
--- NOTE | 2018-12-26 20:10 | RADIOLOGY REPORT (SQ) ---
EXAM DESCRIPTION: XR CHEST 2 VIEWS COMPLETED DATE/TME: 12/26/2018 18:00 CLINICAL HISTORY: 53 years, Female, cp with n/t on left side Compared to 08/25/2017. FINDINGS: The heart is not enlarged. Lungs are clear. No pleural effusion. No pneumothorax. IMPRESSION: No acute disease.
--- NOTE | 2018-12-26 22:06 | ER Document Report ---
ED General - General Chief Complaint: Chest Pain > 30 Stated Complaint: NUMBNESS Time Seen by Provider: 12/26/18 18:00 Primary Care Provider: BRITTON ARMSTRONG MD [ACTIVE STAFF] - Follow up tomorrow JERMAIN HIDALGO MD [Primary Care Provider] - Follow up in 3-5 days FREEDOM HARO MD [ACTIVE STAFF] - Follow up in 3-5 days (call office in the morning to make a close follow up appointment.) Notes: Patient is a pleasant 53-year-old female presents with complaint of chest pain. She says that she has intermittent chest pain. She says that she came in today because has been more frequent over the last week. She says it seems to be induced by stress. She says whenever she is stressed about things her family or other situations she gets the chest pain. Substernal nonradiating. Sometimes feels little short of breath. She is followed by Dr. Armstrong due to history of recurrent chest pain. She is never had an AL. She did have a stress test 2 years ago which was negative. She also mentions that she passed out. Says she passed out several days ago. She hurt her left knee but has still been walking on her left leg and bearing weight despite the pain. She denies having any chest pain around the time she passed out. Patient says that she is had multiple syncopal episodes in the past and therefore did not think much of it. No focal weakness or numbness. No headache prior to passing out. TRAVEL OUTSIDE OF THE [place] IN LAST 30 DAYS: No - Related Data Allergies/Adverse Reactions: iodine Allergy (Verified 12/26/18 16:04) Shellfish * [Shellfish] Allergy (Verified 12/26/18 16:04) Past Medical History - Social History Smoking Status: Current Some Day Smoker Frequency of alcohol use: Social Drug Abuse: None Family History: Reviewed & Not Pertinent, Other Patient has suicidal ideation: No Patient has homicidal ideation: No - Past Medical History Cardiac Medical History: Reports: Hx Hypertension Renal/ Medical History: Denies: Hx Peritoneal Dialysis Past Surgical History: Reports: Hx Section - x3, Hx Hysterectomy - Immunizations Hx Diphtheria, Pertussis, Tetanus Vaccination: Yes Review of Systems - Review of Systems Notes: My Normal Review Basic REVIEW OF SYSTEMS: CONSTITUTIONAL : Denies fever, chills, or sweats. Denies recent illness. EENT: Denies eye, ear, throat, or mouth pain or symptoms. Denies nasal or sin us congestion. CARDIOVASCULAR: Intermittent chest pain RESPIRATORY: Denies cough, cold, or chest congestion. Denies shortness of breath, difficulty breathing, or wheezing. GASTROINTESTINAL: Denies abdominal pain. Denies nausea, vomiting, or diarrhea. MUSCULOSKELETAL: Left knee pain SKIN: Denies rash or skin lesions. NEUROLOGICAL: Denies altered mental status or loss of consciousness. Denies headache. Denies weakness or paralysis or loss of use of either side. Denies problems with gait or speech. Denies sensory or motor loss. ALL OTHER SYSTEMS REVIEWED AND NEGATIVE. Physical Exam - Vital signs Vitals: Temp Pulse Resp BP Pulse Ox 97.9 F 87 16 106/62 98 12/26/18 16:26 12/26/18 16:26 12/26/18 16:26 12/26/18 16:26 12/26/18 16:26 - Notes Notes: General Appearance: Well nourished, alert, cooperative, no acute distress, mild obvious discomfort. Vitals: reviewed, See vital signs table. Head: no swelling or tenderness to the head Eyes: PERRL, EOMI, Conjuctiva clear Mouth: No decreasd moisture Lungs: No wheezing, No rales, No rhonci, No accessory muscle use, good air exchange bilaterally. Heart: Normal rate, Regular rythm, No murmur, no rub Abdomen: Normal BS, soft, No rigidity, No abdominal tenderness, No guarding, no rebound, no abdominal masses, no organomegaly Extremities: strength 5/5 in all extremities, good pulses in all extremities, o bvious swelling to the left knee. Swelling is more superior to the patella. She does have pain to palpation of the patella. She is unable to keep the knee in extension and left leg off the bed. No pain to the lower leg., no edema. Skin: warm, dry, appropriate color, no rash Neuro: speech clear, oriented x 3, normal affect, responds appropriately to questions. Cranial nerves II through XII are intact. Distal sensation intact. Patient moves all extremities without difficulty. Course - Re-evaluation Re-evalutation: 12/27/18 00:38 Patient's troponin and delta troponin are negative. She says her chest pain is usually stress related and she feels it is all stress induced. Suspect this probably she was, however, I am concerned that she is having a bit increase in the frequency of chest pain as of recently. I am also concerned that she has passing out episodes. She said the passing out episodes have been ongoing for a while however she had a few in the last week. This led to her falling and breaking her kneecap. Because of this informed her that it would be best that she stay in the hospital for further workup of her chest pain, syncope, and to get treatment for her knee. Patient refuses to stay. Informed her that she may pass out again and could fall and injure herself again or she could go on to have a heart attack. She is understanding of this but says she still prefers to follow-up outpatient with Dr. Armstrong as well as with Dr. Haro. At this time will discharge patient as she requests. She is awake alert and appropriate and shows no signs of confusion. I feel that I cannot hold her against her will. Patient will be discharged she request. I strongly encouraged her to return to ER anytime as we want what is best for and we are happy to treat her at any time. She will be given crutches and knee immobilizer for her patella. This is what Dr. Haro recommended when I called him on the floor phone. Dictation of this chart was performed using voice recognition software; therefore, there may be some unintended grammatical errors. - Vital Signs Vital signs: Temp Pulse Resp BP Pulse Ox 97.9 F 87 16 135/83 H 98 12/26/18 16:26 12/26/18 16:26 12/27/18 01:04 12/27/18 01:04 12/27/18 01:00 - Laboratory Result Diagrams: 12/26/18 18:14 12/26/18 18:14 Laboratory results interpreted by me: 12/26/18 12/26/18 12/26/18 18:14 18:14 22:48 RDW 15.6 H Plt Count 112 L Sodium 132.5 L Chloride 90 L Carbon Dioxide 21 L Anion Gap 22 H AST 183 H ALT 84 H Albumin 5.4 H Urine Ketones 20 H Ur Leukocyte Esterase SMALL H - EKG Interpretation by Me Additional EKG results interpreted by me: 12/26/18 22:05 EKG is reviewed and interpreted by me. EKG shows sinus rhythm with a rate of [address] segment elevation or depression. No ischemic T wave inversions. IA interval, QRS duration are within normal range. QT interval is prolonged. Old EKG for comparison is from December 26, 2018. Discharge - Discharge Clinical Impression: Chest pain Qualifiers: Chest pain type: unspecified Qualified Code(s): R07.9 - Chest pain, unspecified Syncope Qualifiers: Syncope type: unspecified Qualified Code(s): R55 - Syncope and collapse Patellar fracture Qualifiers: Encounter type: initial encounter Fracture type: closed Fracture morphology: unspecified fracture morphology Fracture alignment: nondisplaced Laterality: left Qualified Code(s): S82.002A - Unspecified fracture of left patella, initial encounter for closed fracture Condition: Good Disposition: HOME, SELF-CARE Additional Instructions: Your x-ray shows that you have a broken kneecap (patella) . Because of this you need to use crutches and wear the knee immobilizer. You must call Dr. Haro, orthopedic surgeon, to make a close follow-up appointment. Call his office in the morning and they will give you a close follow-up appointment. Inform the office that I already discussed your case with Dr. Haro. Other concern is that you had chest pain and also some episodes of passing out. Chest pain could be stress related. Your workup looking for evidence of heart attack is negative at this time however it is still concerning that you are at times are having passing out episodes. This is why we recommend staying in the hospital. We respect your decision to want to go home and follow-up outpatiently; however, we still want you to have a very low threshold to return to the ER immediately if you have recurrent chest pain or feel unwell. Our concern is that you could have recurrent passing out episodes which could lead to further injuries or you could have worsening chest pain which could potentially lead to a heart attack in the future. Please call Dr. Armstrong in the morning to make a close follow-up appointment for him to reevaluate you due to your chest pain. Return to the ER anytime if you have any recurrent chest pain, any recurrent passing out episodes, or if you have any further concerns. Take 81mg of aspirin daily. Referrals: JERMAIN HIDALGO MD [Primary Care Provider] - Follow up in 3-5 days BRITTON ARMSTRONG MD [ACTIVE STAFF] - Follow up tomorrow FREEDOM HARO MD [ACTIVE STAFF] - Follow up in 3-5 days (call office in the morning to make a close follow up appointment.)
[2018-12-26 23:06] LABS: APPEARANCE,URINE SLIGHTLY-CLOUDY; BILIRUBIN,URINE NEGATIVE (NEGATIVE); COLOR,URINE YELLOW; GLUCOSE, URINE NEGATIVE (NEGATIVE); KETONES,URINE 20 mg/dL (NEGATIVE); LEUKOCYTE ESTERASE,URINE SMALL (NEGATIVE); NITRITE,URINE NEGATIVE (NEGATIVE); PROTEIN,URINE NEGATIVE (NEGATIVE); URINE SPECIFIC GRAVITY 1.015; UROBILINOGEN,URINE NEGATIVE mg/dL (<2.0)
--- NOTE | 2018-12-26 23:10 | RADIOLOGY REPORT (SQ) ---
CLINICAL HISTORY: trauma COMPARISON: None. TECHNIQUE: XR KNEE 4 OR MORE VIEWS 12/26/2018 10:33 PM CDT FINDINGS: There is fracture through the mid pole of the patella. There is a small knee effusion. There are benign calcifications in the proximal tibia and distal femur. There is an ossicle at the inferior tip of the patella which may be chronic. IMPRESSION: Suspected patellar fracture through the mid pole. Associated knee effusion.
[2018-12-27] MEDS ORDERED: NORMAL SALINE 500 ML IV ONE (00:31)
[2018-12-27 01:26] VITALS: BP 135/83
== END 2018-12-27 01:26 | disposition home or self-care (01) ==
LOC: ER 15:50
DX: R07.9 Chest pain, unspecified (principal); R55 Syncope and collapse; S82.002A Unspecified fracture of left patella, initial encounter for closed fracture; X58.XXXA Exposure to other specified factors, initial encounter; R20.0 Anesthesia of skin; F17.200 Nicotine dependence, unspecified, uncomplicated; I10 Essential (primary) hypertension; Z91.013 Allergy to seafood; Z90.710 Acquired absence of both cervix and uterus
CPT/HCPCS: 93005; 99284; 36415; 82553; 82550; 85025; 80053; 81001; 84484; 71046; 73564; 70450; 93010; L1830

== ENCOUNTER 2019-09-26 09:40 | Emergency (ER) | payer SELFPAY ==
[2019-09-26] MEDS ORDERED: OXYMETAZOLINE HCL 0.05% NASAL SPRAY 15 ML BOTTLE NASL ONE (11:13)
--- NOTE | 2019-09-26 11:14 | ER Document Report ---
ED Medical Screen (RME) - General Chief Complaint: Nose Bleed Stated Complaint: NOSE BLEED/DIZZINESS Time Seen by Provider: 09/26/19 11:13 Primary Care Provider: JERMAIN HIDALGO MD [Primary Care Provider] - Follow up as needed TRAVEL OUTSIDE OF THE [place] IN LAST 30 DAYS: No - HPI Notes: 09/26/19 11:13 Patient is a 54-year-old female with a history of hypertension who presents co mplaining of nosebleed that began last night through this morning and stopped and then started again here in the waiting room. Patient states that is coming out both sides of her nose and into the back of her throat. She is not on any blood thinning medications. Denies injury. I have treated and performed a rapid initial assessment of this patient. A comprehensive ED assessment and evaluation of the patient, analysis of test results and completion of medical decision making process will be conducted by additional ED providers. PHYSICAL EXAMINATION: GENERAL: Well-appearing, well-nourished and in no acute distress. Nose: There is bloody discharge from both nares bilaterally, pressures been applied. Throat: There is noted blood in the oropharynx. - Related Data Allergies/Adverse Reactions: iodine Allergy (Verified 12/26/18 16:04) Shellfish * [Shellfish] Allergy (Verified 12/26/18 16:04) Past Medical History - Social History Chew tobacco use (# tins/day): No Frequency of alcohol use: None Drug Abuse: None - Past Medical History Cardiac Medical History: Reports: Hx Hypertension Renal/ Medical History: Denies: Hx Peritoneal Dialysis Past Surgical History: Reports: Hx Section - x3, Hx Hysterectomy - Immunizations Hx Diphtheria, Pertussis, Tetanus Vaccination: Yes Physical Exam - Vital signs Vitals: Temp Pulse Resp BP Pulse Ox 98.5 F 105 H 15 138/98 H 93 09/26/19 09:47 09/26/19 09:47 09/26/19 09:47 09/26/19 09:47 09/26/19 09:47 Course - Vital Signs Vital signs: Temp Pulse Resp BP Pulse Ox 98.5 F 105 H 15 138/98 H 93 09/26/19 10:00 09/26/19 09:47 09/26/19 10:00 09/26/19 09:47 09/26/19 10:00 Doctor's Discharge - Discharge Referrals: JERMAIN HIDALGO MD [Primary Care Provider] - Follow up as needed
--- NOTE | 2019-09-26 12:58 | ER Document Report ---
ED General - General Chief Complaint: Nose Bleed Stated Complaint: NOSE BLEED/DIZZINESS Time Seen by Provider: 09/26/19 11:13 Primary Care Provider: JERMAIN HIDALGO MD [Primary Care Provider] - Follow up in 3-5 days TRAVEL OUTSIDE OF THE [place] IN LAST 30 DAYS: No - HPI Notes: 54-year-old female to the emergency department with complaints of a nosebleed. She states that started between 730 and 830 this morning and has continued up until she arrived here. She states that she is never had a nosebleed like this before. She is not on a blood thinner. She does have high blood pressure and she has not been appropriately taking her medicine. She takes metoprolol 25 daily. She states that she is followed by Dr. Hidalgo. She was given Afrin by triage provider and that has improved her bleeding. - Related Data Allergies/Adverse Reactions: iodine Allergy (Verified 09/26/19 13:36) Shellfish * [Shellfish] Allergy (Verified 09/26/19 13:36) Past Medical History - General Information source: Patient, Relative - Social History Smoking Status: Current Every Day Smoker Chew tobacco use (# tins/day): No Frequency of alcohol use: None Drug Abuse: None Lives with: Spouse/Significant other Family History: Reviewed & Not Pertinent, Other Patient has suicidal ideation: No Patient has homicidal ideation: No - Past Medical History Cardiac Medical History: Reports: Hx Hypertension Renal/ Medical History: Denies: Hx Peritoneal Dialysis Past Surgical History: Reports: Hx Section - x3, Hx Hysterectomy - Immunizations Hx Diphtheria, Pertussis, Tetanus Vaccination: Yes Review of Systems - Review of Systems Constitutional: denies: Chills, Fever EENT: See HPI, Other - Nosebleed Cardiovascular: denies: Chest pain, Palpitations, Syncope, Dizziness, Lightheaded Respiratory: denies: Cough, Short of breath Gastrointestinal: denies: Abdominal pain, Diarrhea, Nausea, Vomiting Genitourinary: No symptoms reported Female Genitourinary: No symptoms reported Musculoskeletal: No symptoms reported Skin: No symptoms reported Hematologic/Lymphatic: No symptoms reported Neurological/Psychological: No symptoms reported -: Yes All other systems reviewed and negative Physical Exam - Vital signs Vitals: Temp Pulse Resp BP Pulse Ox 98.5 F 105 H 15 138/98 H 93 09/26/19 09:47 09/26/19 09:47 09/26/19 09:47 09/26/19 09:47 09/26/19 09:47 Interpretation: Normal - General General appearance: Appears well, Alert In distress: None - HEENT Head: Normocephalic, Atraumatic Eyes: Normal Pupils: PERRL Ears: Normal External canal: Normal Tympanic membrane: Normal Sinus: Normal Nasal: Other - Bilateral nasal turbinates are slightly edematous but there is no active bleeding. There is no septal hematoma. There is no ecchymosis. There is no purulent discharge or evidence for foreign body. Mouth/Lips: Normal. No: Angioedema Mucous membranes: Normal Pharynx: Normal. No: Potential airway comprom. Neck: Normal, Supple. No: Lymphadenopathy, Meningismus - Respiratory Respiratory status: No respiratory distress Chest status: Nontender. No: Accessory muscle use Breath sounds: Normal. No: Rales, Rhonchi, Stridor, Wheezing Chest palpation: Normal - Cardiovascular Rhythm: Regular Heart sounds: Normal auscultation Murmur: No - Abdominal Inspection: Normal Distension: No distension Bowel sounds: Normal Tenderness: Nontender Organomegaly: No organomegaly - Neurological Neuro grossly intact: Yes Cognition: Normal Orientation: AAOx4 [place] Coma Scale Eye Opening: Spontaneous [place] Coma Scale Verbal: Oriented [place] Coma Scale Motor: Obeys Commands Mar[place] Coma Scale Total: 15 Speech: Normal Motor strength normal: LUE, RUE, LLE, RLE Additional motor exam normals: Equal mathematical technician. No: Pronator drift Sensory: Normal - Psychological Associated symptoms: Normal affect, Normal mood - Skin Skin Temperature: Warm Skin Moisture: Dry Skin Color: Normal Course - Re-evaluation Re-evalutation: 09/26/19 Impression: Epistaxis. Patient's nosebleed was controlled well with Afrin. Did have her take her metoprolol that she had with her here in the emergency department. I have encouraged her to take her metoprolol without fail. We will send home with Afrin for 3 days total. Have encouraged her to return if she has worsening nosebleed or any other complaints. Patient agrees with the plan. PCP follow-up. - Vital Signs Vital signs: Temp Pulse Resp BP Pulse Ox 98.9 F 83 20 141/95 H 94 09/26/19 16:02 09/26/19 16:02 09/26/19 16:02 09/26/19 16:02 09/26/19 16:02 - Laboratory Result Diagrams: 09/26/19 13:30 09/26/19 13:30 Laboratory results interpreted by me: 09/26/19 09/26/19 13:30 13:30 RBC 3.52 L Hgb 10.9 L Hct 33.2 L RDW 16.8 H Creatinine 0.41 L Discharge - Discharge Clinical Impression: Epistaxis Hypertension Qualifiers: Hypertension type: essential hypertension Qualified Code(s): I10 - Essential (primary) hypertension Condition: Stable Disposition: HOME, SELF-CARE Instructions: Nosebleed Instructions ([facility]) Additional Instructions: FOLLOW UP WITH ENT> RETURN IF WORSENING NOSEBLEED> TAKE AFRIN. TAKE YOUR BLOOD PRESSURE MEDICINE WITHOUT FAIL. Prescriptions: Oxymetazoline HCl [Afrin 0.05% Nasal [place] 15 ml Bottle] 2 spray NASL BID #1 bottle Metoprolol Tartrate [Lopressor 25 mg Tablet] 25 mg PO DAILY #30 tab Referrals: JERMAIN HIDALGO MD [Primary Care Provider] - Follow up in 3-5 days
[2019-09-26 13:56] LABS: ABSOLUTE MONOCYTES (AUTO) 0.5 10^3/uL (0.1-1.4); ABSOLUTE NEUT (AUTO) 4.4 10^3/uL (1.7-8.2); BASOPHILS % (AUTO) 0.4 % (0-2); HEMATOCRIT 33.2 % (36.0-47.0); HEMOGLOBIN 10.9 g/dL (12.0-15.5); LYMPHOCYTES % (AUTO) 16.2 % (13-45); MEAN CORPUSCULAR HEMOGLOBIN 30.9 pg (27.0-33.4); MEAN CORPUSCULAR HGB CONC 32.8 g/dL (32.0-36.0); MEAN CORPUSCULAR VOLUME 94 fl (80-97); MONOCYTES % (AUTO) 8.6 % (3-13); PLATELET COUNT 180 10^3/uL (150-450); RED BLOOD COUNT 3.52 10^6/uL (3.72-5.28); RED CELL DISTRIBUTION WIDTH 16.8 % (11.5-14.0); SEGMENTED NEUTROPHILS % (AUTO) 74.8 % (42-78); TOTAL CELLS COUNTED % (AUTO) 100 %; WHITE BLOOD COUNT 5.9 10^3/uL (4.0-10.5)
[2019-09-26 14:01] LABS: PROTHROMBIN TIME 13.2 SEC (11.4-15.4)
[2019-09-26 14:32] LABS: ANION GAP 11 (5-19); BLOOD UREA NITROGEN 15 mg/dL (7-20); CALCIUM 9.6 mg/dL (8.4-10.2); CARBON DIOXIDE 30 mmol/L (22-30); CHLORIDE 99 mmol/L (98-107); GLUCOSE 86 mg/dL (75-110); POTASSIUM 4.1 mmol/L (3.6-5.0)
[2019-09-26 15:56] VITALS: BP 141/95
== END 2019-09-26 16:02 | disposition home or self-care (01) ==
LOC: ER 09:40
DX: R04.0 Epistaxis (principal); I10 Essential (primary) hypertension; F17.200 Nicotine dependence, unspecified, uncomplicated; R42 Dizziness and giddiness; Z90.710 Acquired absence of both cervix and uterus
CPT/HCPCS: 99283; 36415; 85025; 85610; 80048; J3490

== ENCOUNTER 2020-03-02 05:43 | Observation (INO) | payer OTHER ==
[2020-03-02] MEDS ORDERED: METHYLPREDNISOLONE INJ 125 MG/2 ML SDV IV ONE (05:50)
[2020-03-02] MEDS ORDERED: EPINEPHRINE INJ/PF 1 MG/1 ML AMPULE IM ONE (05:50)
[2020-03-02] MEDS ORDERED: DIPHENHYDRAMINE HCL 50 MG/ML VIAL IV ONE (05:51)
[2020-03-02] MEDS ORDERED: NORMAL SALINE 250 ML IV PRN (05:51)
[2020-03-02] MEDS ORDERED: FAMOTIDINE INJ/PF 20 MG/2 ML SDV IV ONE (05:51)
[2020-03-02 06:02] LABS: ABSOLUTE NEUT (AUTO) 1.1 10^3/uL (1.7-8.2); TOTAL CELLS COUNTED % (AUTO) 100 %; WHITE BLOOD COUNT 3.5 10^3/uL (4.0-10.5)
[2020-03-02 06:05] LABS: ABSOLUTE MONOCYTES (AUTO) 0.4 10^3/uL (0.1-1.4); EOSINOPHILS % (AUTO) 0.6 % (0-6); HEMATOCRIT 33.3 % (36.0-47.0); HEMOGLOBIN 11.1 g/dL (12.0-15.5); LYMPHOCYTES % (AUTO) 55.3 % (13-45); MEAN CORPUSCULAR HEMOGLOBIN 31.1 pg (27.0-33.4); MEAN CORPUSCULAR HGB CONC 33.5 g/dL (32.0-36.0); MEAN CORPUSCULAR VOLUME 93 fl (80-97); MONOCYTES % (AUTO) 12.4 % (3-13); PLATELET COUNT 167 10^3/uL (150-450); RED BLOOD COUNT 3.58 10^6/uL (3.72-5.28); RED CELL DISTRIBUTION WIDTH 16.1 % (11.5-14.0); SEGMENTED NEUTROPHILS % (AUTO) 30.7 % (42-78)
--- NOTE | 2020-03-02 06:09 | ER Document Report ---
ED Medical Screen (RME) - General Stated Complaint: MOUTH SWELLING Time Seen by Provider: 03/02/20 05:50 Primary Care Provider: OSWALDO MONTOYA PA [Primary Care Provider] - Follow up as needed Notes: 55-year-old female who arrives via private vehicle complaining of facial swelling, throat swelling, some difficulty swallowing and voice changes. Patient states that her lips are swelling as well. Patient thinks that this started around 5 AM this morning. Patient has never had this happen before, states that she does take blood pressure medications but does not know what their names are. TRAVEL OUTSIDE OF THE [place] IN LAST 30 DAYS: No - Related Data Allergies/Adverse Reactions: iodine Allergy (Verified 09/26/19 13:36) Shellfish * [Shellfish] Allergy (Verified 09/26/19 13:36) Past Medical History - Past Medical History Cardiac Medical History: Reports: Hx Hypertension Renal/ Medical History: Denies: Hx Peritoneal Dialysis Past Surgical History: Reports: Hx Section - x3, Hx Hysterectomy - Immunizations Hx Diphtheria, Pertussis, Tetanus Vaccination: Yes Physical Exam - Notes Notes: Patient does have swollen lips, lower greater than upper, she has a hoarse voice but there is no stridor, she is not in any respiratory distress. She is not drooling. Patient does appear quite anxious. Patient does have a swollen posterior oropharynx including the soft palate and the posterior tongue is swollen as well. LUNGS: Clear to auscultation bilaterally, no wheezes, rales or rhonchi, no respiratory distress. HEART: Regular rate and rhythm, no murmurs, gallops, rubs. ABDOMEN: Soft, nontender, nondistended, bowel sounds present in all 4 quadrants. Course - Re-evaluation Re-evalutation: 03/02/20 06:07 According to this facility's angioedema protocol as this patient has grade 3 angioedema patient is being given epinephrine, Pepcid, Benadryl, Solu-Medrol, FFP and anesthesia has been consulted. I discussed the patient with ILEANA Lopez. I requested that he come and evaluate the patient in the emergency department. The dayshift ED attending Dr. Delaney has now arrived, he and I did an inperson handoff of this case. He will be taking over care of this patient. - Laboratory Result Diagrams: 03/02/20 05:51 Doctor's Discharge - Discharge Referrals: OSWALDO MONTOYA PA [Primary Care Provider] - Follow up as needed
[2020-03-02 06:13] LABS: INTERNATIONAL RATION (INR) 0.92; PROTHROMBIN TIME 12.4 SEC (11.4-15.4)
--- NOTE | 2020-03-02 07:09 | ER Document Report ---
ED General - General Chief Complaint: Facial Swelling Stated Complaint: MOUTH SWELLING Time Seen by Provider: 03/02/20 05:50 Notes: 55-year-old woman presents to the emergency department with onset of swelling in her face and oropharynx region. Patient states that she awoke this morning at about 5:00 AM and noted the swelling and discomfort with swallowing. She is noted to have raspy voice and swelling in the lower jaw area under the chin. None presently no respiratory distress. TRAVEL OUTSIDE OF THE [place] IN LAST 30 DAYS: No - Related Data Allergies/Adverse Reactions: iodine Allergy (Verified 09/26/19 13:36) Shellfish * [Shellfish] Allergy (Verified 09/26/19 13:36) Past Medical History - Social History Smoking Status: Current Every Day Smoker Frequency of alcohol use: Occasional Drug Abuse: None Family History: Reviewed & Not Pertinent, Other Patient has homicidal ideation: No - Past Medical History Cardiac Medical History: Reports: Hx Hypertension Renal/ Medical History: Denies: Hx Peritoneal Dialysis Past Surgical History: Reports: Hx Section - x3, Hx Hysterectomy - Immunizations Hx Diphtheria, Pertussis, Tetanus Vaccination: Yes Review of Systems - Review of Systems Notes: Constitutional: Negative for fever. HENT: + Facial swelling, + oral pharyngeal swelling Eyes: Negative for visual changes. Cardiovascular: Negative for chest pain. Respiratory: Negative for shortness of breath. Gastrointestinal: Negative for abdominal pain, vomiting or diarrhea. Genitourinary: Negative for dysuria. Musculoskeletal: Negative for back pain. Skin: Negative for rash. Neurological: Negative for headaches, weakness or numbness. 10 point ROS negative except as marked above and in HPI. Physical Exam - Vital signs Vitals: Resp 14 03/02/20 05:47 - Notes Notes: PHYSICAL EXAMINATION: Physical Exam: General: Well-nourished well-developed 55-year-old woman in no acute distress HEENT: NC/AT, pupils equal round and reactive to light, MM moist,nares clear, swelling in the submental area and lower chin, oropharynx with swelling in the posterior pharynx, the uvula, the tonsillar pillars. Airway is patent Lungs: clear, no wheezing, no rales no rhonchi CVS: Regular rate and rhythm no murmur gallop or rub Abdomen: Soft, active, nontender, no masses, no hepatosplenomegaly Ext: No edema, clubbing or cyanosis. Neuro: Alert and responsive, moving all 4 extremities on command, cranial nerves intact, no focal findings Skin: Intact no open lesions, no rash PSYCH: Normal mood, normal affect. Course - Re-evaluation Re-evalutation: 03/02/20 07:18 Airway guide for angioedema which had been established by the [facility] emergency department and anesthesia is being followed. The patient was classified as a grade 3 angioedema, there is swelling in the posterior tongue and posterior palate and oropharynx region. Anesthesia supervisor telephone answering service and had been contacted, orders for IV steroids, antihistamine and I am epinephrine along with FFP were started. Presently the patient is in no respiratory distress and states that she is doing well. It is not clear if he is taking an JAMIN inhi bitor, review of the prior records shows that she had been on metoprolol, the patient has no recall of the name of her antihypertensive medication. Given her presentation and observation may be warranted. 03/02/20 08:46 The hospitalist was contacted and will bring the patient into the hosp ital for close observation. Patient is stable at this time. - Vital Signs Vital signs: Temp Pulse Resp BP Pulse Ox 98.6 F 86 15 136/95 H 96 03/02/20 07:39 03/02/20 08:30 03/02/20 08:30 03/02/20 08:00 03/02/20 08:30 - Laboratory Result Diagrams: 03/02/20 05:51 03/02/20 05:51 Laboratory results interpreted by me: 03/02/20 03/02/20 05:51 05:51 WBC 3.5 L RBC 3.58 L Hgb 11.1 L Hct 33.3 L RDW 16.1 H Lymph % (Auto) 55.3 H Absolute Neuts (auto) 1.1 L Seg Neutrophils % 30.7 L Magnesium 1.4 L AST 129 H ALT 47 H Critical Care Note - Critical Care Note Total time excluding time spent on procedures (mins): 60 - Critical care time spent obtaining history from patient or surrogate, discussions with consultants, development of treatment plan with patient or surrogate, evaluation of patient's response to treatment, examination of patient, ordering and performing treatments and interventions, ordering and review of laboratory studies, re-evaluation of patient's condition, ordering and review of radiographic studies and review of old charts Discharge - Discharge Clinical Impression: Tongue swelling Angioedema Qualifiers: Encounter type: initial encounter Qualified Code(s): T78.3XXA - Angioneurotic edema, initial encounter Condition: Fair Disposition: ADMITTED INPATIENT Admitting Provider: [facility]os[facility] (Hospitalist) Unit Admitted: [facility]
[2020-03-02 08:55] LABS: ALBUMIN 4.3 g/dL (3.5-5.0); ALKALINE PHOSPHATASE 123 U/L (38-126); ANION GAP 9 (5-19); ASPARTATE AMINO TRANSFERASE 129 U/L (14-36); BILIRUBIN,TOTAL 0.2 mg/dL (0.2-1.3); BLOOD UREA NITROGEN 14 mg/dL (7-20); CARBON DIOXIDE 29 mmol/L (22-30); CHLORIDE 103 mmol/L (98-107); GLUCOSE 98 mg/dL (75-110); POTASSIUM 4.1 mmol/L (3.6-5.0)
[2020-03-02] MEDS ORDERED: ACETAMINOPHEN 325 MG TABLET PO PRN (09:42)
--- NOTE | 2020-03-02 10:08 | PDOC H&P ---
History of Present Illness Admission Date/PCP: 03/02/20 08:35 Patient complains of: Throat closing up History of Present Illness: BRYANNA MENJIVAR is a 55 year old female with a history of hyperthyroidism, hypertension, who presents to the hospital with complaints of feeling like her throat is closing up which started this morning upon waking up. Also noted some mild facial swelling and puffiness of her lips. This was accompanied by shortness of breath. Her only allergies include iodine and shellfish. She denies eating any seafood recently or any food that she thinks she may be allergic to. She ate a pot roast with potato salad yesterday night which was homemade. Denies any recent procedures or studies with contrast. Denies exposure to iodine. Also denies any recent changes to medications. She only takes a blood pressure medicine which she could not specify [may be metoprolol according to med rec] and methimazole. In the ER patient received epinephrine, Pepcid, Benadryl and Solu-Medrol with improvement of her symptoms. Currently feels a lot better. Past Medical History Cardiac Medical History: Reports: Hypertension Past Surgical History Past Surgical History: Reports: Section - x3, Hysterectomy Social History Smoking Status: Current Every Day Smoker Frequency of Alcohol Use: None Hx Recreational Drug Use: No Hx Prescription Drug Abuse: No - Advance Directive Resuscitation Status: Full Code Family History Family History: Hypertension, Malignancy - Mother had breast cancer Parental Family History Reviewed: Yes Children Family History Reviewed: Unknown Sibling(s) Family History Reviewed.: Yes Medication/Allergy Home Medications: Metoprolol Tartrate [Lopressor 25 mg Tablet] 25 mg PO DAILY #30 tab 09/26/19 Methimazole [Tapazole 5 mg Tablet] 2.5 mg PO Q12 03/02/20 Allergies/Adverse Reactions: iodine Allergy (Verified 09/26/19 13:36) Shellfish * [Shellfish] Allergy (Verified 09/26/19 13:36) Review of Systems Constitutional: ABSENT: chills, fatigue, fever(s) Eyes: ABSENT: visual disturbances Ears: ABSENT: hearing changes Nose, Mouth, and Throat: ABSENT: headache(s), sore throat Cardiovascular: ABSENT: chest pain, edema Respiratory: ABSENT: dyspnea Gastrointestinal: ABSENT: abdominal pain, nausea, vomiting Musculoskeletal: ABSENT: muscle weakness Neurological: ABSENT: confusion, focal weakness Endocrine: ABSENT: polyuria Hematologic/Lymphatic: ABSENT: easy bruising Allergic/Immunologic: PRESENT: other - Mucous of the back of her throat Physical Exam Vital Signs: Temp Pulse Resp BP Pulse Ox 98.6 F 86 14 134/102 H 98 03/02/20 07:39 03/02/20 08:30 03/02/20 09:20 03/02/20 09:20 03/02/20 09:20 Intake & Output 03/01/20 03/02/20 03/03/20 06:59 06:59 06:59 Intake Total 190 Balance 190 Weight 48.1 kg General appearance: PRESENT: no acute distress, cooperative Head exam: PRESENT: normocephalic Eye exam: PRESENT: EOMI Mouth exam: PRESENT: other - No evidence of macroglossia. Mildly puffy lips but uncertain if this is patient's normal appearance. Neck exam: ABSENT: JVD Respiratory exam: PRESENT: clear to auscultation patrick, unlabored. ABSENT: accessory muscle use, retraction, stridor Cardiovascular exam: PRESENT: RRR, +S1, +S2. ABSENT: tachycardia GI/Abdominal exam: PRESENT: soft. ABSENT: tenderness Extremities exam: ABSENT: calf tenderness, pedal edema, +1 edema, +2 edema Neurological exam: PRESENT: alert, awake, oriented to person, oriented to place, oriented to time, oriented to situation Psychiatric exam: ABSENT: agitated, anxious Focused psych exam: ABSENT: pressured speech Skin exam: ABSENT: jaundice, skin tears, urticaria Results Laboratory Results: 03/02/20 05:51 03/02/20 05:51 03/02/20 03/02/20 03/02/20 05:51 05:51 06:00 WBC 3.5 L RBC 3.58 L Hgb 11.1 L Hct 33.3 L MCV 93 MCH 31.1 MCHC 33.5 RDW 16.1 H Plt Count 167 Seg Neutrophils % 30.7 L Sodium 141.1 Potassium 4.1 Chloride 103 Carbon Dioxide 29 Anion Gap 9 BUN 14 Creatinine 0.56 Est GFR ( Amer) > 60 Glucose 98 Calcium 9.0 Magnesium 1.4 L Total Bilirubin 0.2 AST 129 H Alkaline Phosphatase 123 Total Protein 7.0 Albumin 4.3 Blood Type O POSITIVE Antibody Screen NEGATIVE Assessment and Plan - Diagnosis (1) Angioedema Qualifiers: Encounter type: initial encounter Qualified Code(s): T78.3XXA - Angioneurotic edema, initial encounter Is this a current diagnosis for this admission?: Yes Plan: Etiology unknown. No evidence of food or medication triggers. Denies prior history or insect bites and no bites on skin survey. Improved following treatment with Solu-Medrol, epinephrine IM, Pepcid and Benadryl. We will maintain on prednisone and Pepcid for now. Check C4, ESR and CRP Monitor on continuous pulse oximetry in the IMCU overnight and if no recurrence we will plan to discharge tomorrow to follow-up with an Consumer Electronic Retail Specialist and with an EpiPen. (2) Hyperthyroidism Is this a current diagnosis for this admission?: Yes Plan: Continue methimazole and metoprolol. Patient does not know the cause of her hyperthyroidism. - Time Time Spent with patient: 25-34 minutes
[2020-03-02] MEDS: FAMOTIDINE 20 MG TABLET PO SCH ×2 (10:35→22:01)
[2020-03-02] MEDS: METOPROLOL TARTRATE 25 MG TABLET PO SCH (10:35)
[2020-03-02] MEDS: METHIMAZOLE 5 MG TABLET PO SCH ×2 (11:34→22:01)
[2020-03-02] MEDS: PREDNISONE 20 MG TABLET PO SCH (17:42)
[2020-03-03] MEDS: FAMOTIDINE 20 MG TABLET PO SCH (09:57)
[2020-03-03] MEDS: METHIMAZOLE 5 MG TABLET PO SCH (09:57)
[2020-03-03] MEDS: METOPROLOL TARTRATE 25 MG TABLET PO SCH (09:58)
[2020-03-03] MEDS: PREDNISONE 20 MG TABLET PO SCH (09:58)
--- NOTE | 2020-03-03 10:07 | PDOC DISCHARGE SUMMARY ---
Impression - Admit/DC Date/PCP Admission Date/Primary Care Provider: 03/02/20 08:35 Discharge Date: 03/03/20 - Discharge Diagnosis (1) Angioedema Is this a current diagnosis for this admission?: Yes (2) Hyperthyroidism Is this a current diagnosis for this admission?: Yes - Additional Information Resuscitation Status: Full Code Discharge Diet: Regular Referrals: OSWALDO MONTOYA PA [NO LOCAL MD] - 03/12/20 9:30 am Prescriptions: Prednisone [Deltasone 20 mg Tablet] 20 mg PO BID #5 tablet Epinephrine 0.3 mg IM ONCEP PRN #1 pe PRN Reason: Famotidine [Pepcid 20 mg Tablet] 20 mg PO Q12 #5 tablet Home Medications: Metoprolol Tartrate [Lopressor 25 mg Tablet] 25 mg PO DAILY #30 tab 09/26/19 Methimazole [Tapazole 5 mg Tablet] 2.5 mg PO Q12 03/02/20 Epinephrine 0.3 mg IM ONCEP PRN #1 pe 03/03/20 Famotidine [Pepcid 20 mg Tablet] 20 mg PO Q12 #5 tablet 03/03/20 Prednisone [Deltasone 20 mg Tablet] 20 mg PO BID #5 tablet 03/03/20 History of Present Illiness History of Present Illness: BRYANNA MENJIVAR is a 55 year old female with a history of hyperthyroidism, hypertension, who presents to the hospital with complaints of feeling like her throat is closing up which started this morning upon waking up. Also noted some mild facial swelling and puffiness of her lips. This was accompanied by shortness of breath. Her only allergies include iodine and shellfish. She jensen es eating any seafood recently or any food that she thinks she may be allergic to. She ate a pot roast with potato salad yesterday night which was homemade. Denies any recent procedures or studies with contrast. Denies exposure to iodine. Also denies any recent changes to medications. She only takes a blood pressure medicine which she could not specify [may be metoprolol according to med rec] and methimazole. In the ER patient received epinephrine, Pepcid, Benadryl and Solu-Medrol with improvement of her symptoms. Currently feels a lot better. Hospital Course Hospital Course: Patient was admitted for treatment of angioedema. In the ER she had been noted to have facial, tongue and lip swelling and complaint of her throat feeling like it was closing. She was treated with Solu-Medrol, Benadryl, Pepcid and epi. Her symptoms improved. She was admitted for observation and placed on continuous pulse oximetry in the IMCU. Vitals have been stable and her symptoms have resolved at this time. Extensive survey was done but there was no obvious cause of the angioedema as the 2 medications she is on do not cause such, no evidence of recent food triggers, recent insect bites or any imaging studies using iodine. At this time the cause of her angioedema is idiopathic. Patient has remained stable and is being discharged safely. She will be given 2-1/2 more days of prednisone and Pepcid and a prescription has been given to her for an EpiPen which he is familiar with using. Strict instructions have been given to her to follow-up with an filament shaper for extensive allergy testing. ESR and CRP are normal. C4 level pending at time of discharge. Physical Exam Vital Signs: Temp Pulse Resp BP Pulse Ox 98.1 F 66 15 123/70 97 03/03/20 03:29 03/03/20 07:00 03/03/20 03:29 03/03/20 03:29 03/03/20 04:12 Pulse Oximeter Continuous Start: 03/02/20 10:15 Freq: RTQ4 Status: Active Protocol: Document 03/03/20 04:12 PMU (Rec: 03/03/20 04:13 PMU [id number]) Pulse Oximetry Assessment Oxygen Saturation (92-100) 97 Oxygen Delivery Method Room Air Fraction of Inspired Oxygen (FIO2) 21 Equipment Usage Equipment in Use Continuous SpO2 Machine # 3 Intake & Output 03/02/20 03/03/20 03/04/20 06:59 06:59 06:59 Intake Total 430 Balance 430 Weight 48.1 kg 47.2 kg General appearance: PRESENT: no acute distress, cooperative Neck exam: ABSENT: JVD Respiratory exam: PRESENT: clear to auscultation patrick, unlabored Neurological exam: PRESENT: alert, awake Results Laboratory Results: WBC 3.5 10^3/uL (4.0-10.5) L 03/02/20 05:51 RBC 3.58 10^6/uL (3.72-5.28) L 03/02/20 05:51 Hgb 11.1 g/dL (12.0-15.5) L 03/02/20 05:51 Hct 33.3 % (36.0-47.0) L 03/02/20 05:51 MCV 93 fl (80-97) 03/02/20 05:51 MCH 31.1 pg (27.0-33.4) 03/02/20 05:51 MCHC 33.5 g/dL (32.0-36.0) 03/02/20 05:51 RDW 16.1 % (11.5-14.0) H 03/02/20 05:51 Plt Count 167 10^3/uL (150-450) 03/02/20 05:51 Lymph % (Auto) 55.3 % (13-45) H 03/02/20 05:51 [place] % (Auto) 12.4 % (3-13) 03/02/20 05:51 Eos % (Auto) 0.6 % (0-6) 03/02/20 05:51 Baso % (Auto) 1.0 % (0-2) 03/02/20 05:51 Absolute Neuts (auto) 1.1 10^3/uL (1.7-8.2) L 03/02/20 05:51 Absolute Lymphs (auto) 2.0 10^3/uL (0.5-4.7) 03/02/20 05:51 Absolute Monos (auto) 0.4 10^3/uL (0.1-1.4) 03/02/20 05:51 Absolute Eos (auto) 0.0 10^3/uL (0.0-0.6) 03/02/20 05:51 Absolute Basos (auto) 0.0 10^3/uL (0.0-0.2) 03/02/20 05:51 Seg Neutrophils % 30.7 % (42-78) L 03/02/20 05:51 ESR 15 mm/hr (0-30) 03/02/20 12:15 PT 12.4 SEC (11.4-15.4) 03/02/20 05:51 INR 0.92 03/02/20 05:51 APTT 27.0 SEC (23.5-35.8) 03/02/20 05:51 Sodium 141.1 mmol/L (137-145) 03/02/20 05:51 Potassium 4.1 mmol/L (3.6-5.0) 03/02/20 05:51 Chloride 103 mmol/L (98-107) 03/02/20 05:51 Carbon Dioxide 29 mmol/L (22-30) 03/02/20 05:51 Anion Gap 9 (5-19) 03/02/20 05:51 BUN 14 mg/dL (7-20) 03/02/20 05:51 Creatinine 0.56 mg/dL (0.52-1.25) 03/02/20 05:51 Est GFR ( Amer) > 60 (>60) 03/02/20 05:51 Est GFR (MDRD) Non-Af > 60 (>60) 03/02/20 05:51 Glucose 98 mg/dL (75-110) 03/02/20 05:51 Calcium 9.0 mg/dL (8.4-10.2) 03/02/20 05:51 Magnesium 1.4 mg/dL (1.6-2.3) L 03/02/20 05:51 Total Bilirubin 0.2 mg/dL (0.2-1.3) 03/02/20 05:51 Direct Bilirubin 0.0 mg/dL (0.0-0.4) 03/02/20 05:51 Neonat Total Bilirubin Not Reportable 03/02/20 05:51 Neonat Direct Bilirubin Not Reportable 03/02/20 05:51 Neonat Indirect Bili Not Reportable 03/02/20 05:51 AST 129 U/L (14-36) H 03/02/20 05:51 ALT 47 U/L (<35) H 03/02/20 05:51 Alkaline Phosphatase 123 U/L (38-126) 03/02/20 05:51 C-Reactive Protein < 5.0 mg/L (<10.0) 03/02/20 05:51 Total Protein 7.0 g/dL (6.3-8.2) 03/02/20 05:51 Albumin 4.3 g/dL (3.5-5.0) 03/02/20 05:51 Blood Type O POSITIVE 03/02/20 06:00 Antibody Screen NEGATIVE 03/02/20 06:00 Plan Time Spent: Less than 30 Minutes Stroke Is this a Stroke Patient?: No Acute Heart Failure - Is this a Heart Failure Patient?: No
[2020-03-03 13:34] VITALS: BP 117/84
== END 2020-03-03 13:05 | disposition home or self-care (01) ==
LOC: ER 05:43 → EH 08:35 → INTOOBSV 08:35 → 3W 14:43
PROVIDERS: ADMIT Internal Medicine; ATTEND Internal Medicine
DX: T78.3XXA Angioneurotic edema, initial encounter (principal); E05.90 Thyrotoxicosis, unspecified without thyrotoxic crisis or storm; I10 Essential (primary) hypertension; F17.200 Nicotine dependence, unspecified, uncomplicated; Z79.899 Other long term (current) drug therapy; Z91.041 Radiographic dye allergy status; Z91.013 Allergy to seafood
CPT/HCPCS: 99291; 96372; 96374; 96375; 86900; 86901; 36415; 36430; 86850; 86160; 83735; 85025; 85652; 85610; 85730; 86140; 80053; 94762 ×2; G0378 ×3; P9017; J1200; J0171; J2930; J7512 ×2; S0028